=== PATIENT | female | born 1985 | race Caucasian/White ===

== ENCOUNTER 2018-11-12 11:35 | Emergency (ER) | payer OTHER ==
[2018-11-12] MEDS: KETOROLAC 30 MG INJ IM (13:20)
[2018-11-12] MEDS: ONDANSETRON (ODT) 4 MG TAB ODT (13:56)
== END 2018-11-12 14:30 | disposition home or self-care (01) ==
LOC: FTE 11:35
DX: R50.9 Fever, unspecified (principal); R05 Cough; R09.89 Other specified symptoms and signs involving the circulatory and respiratory systems; R11.2 Nausea with vomiting, unspecified; J45.909 Unspecified asthma, uncomplicated; F17.210 Nicotine dependence, cigarettes, uncomplicated
CPT/HCPCS: 81025; 96372; 99284-25